=== PATIENT | female | born 1935 | race Caucasian/White ===

== ENCOUNTER 2019-05-02 15:36 | Inpatient (IN) | payer MEDICARE, OTHER ==
[~2019-05-02] VITALS: Ht 152.4 cm; Wt 44.7 kg
[2019-05-02] MEDS ORDERED: BENAZEPRIL HCL10 MG PO (15:48)
[2019-05-02] MEDS ORDERED: AMLODIPINE BESYL5 MG PO (15:48)
[2019-05-02] MEDS ORDERED: METOPROLOL SUCC50 MG PO (15:49)
[2019-05-02] MEDS ORDERED: HYDROCHLOROTHIA25 MG PO (15:49)
[2019-05-02] MEDS ORDERED: CONTOUR NEXT1 EACH MISC (15:50)
[2019-05-02] MEDS ORDERED: METFORMIN HCL500 M1 PO (15:50)
[2019-05-02] MEDS ORDERED: OMEPRAZOLE40 MG PO (15:50)
[2019-05-02] MEDS ORDERED: SIMVASTATIN40 MG PO (15:50)
--- NOTE | 2019-05-02 23:19 | EKG ---
[facility] [address] [facility] [place] [address] Signed Sinus rhythm with occasional premature ventricular complexes ST \T\ T wave abnormality, consider inferolateral ischemia Abnormal ECG No previous ECGs available Confirmed by DORA HERRON MD ([id number]) on 05/02/2019 11:19:46 PM Electronically Signed By: DORA HERRON MD 05/02/19 2319 PATIENT NAME: ANN-MARIEDINA Brown Electrocardiogram DATE OF : 35 PHYSICIAN: DORA HERRON MD REPORT #: [id number] REPORT IS CONFIDENTIAL AND NOT TO BE RELEASED WITHOUT AUTHORIZATION
--- NOTE | 2019-05-03 08:13 | CONS ---
[facility] [address] [place], [place] [address] Signed DATE OF CONSULTATION: HISTORY OF PRESENT ILLNESS: Ms. Jacobsen is an 83-year-old white female, who lives at home independently. She was doing well until earlier today. She was out picking up her dog droppings in her yard when she slipped and was unable to ambulate. She was brought to the emergency room where evaluation revealed a shortened and externally rotated right lower extremity. X-rays were taken, which showed an intertrochanteric hip fracture on the right. PAST MEDICAL HISTORY: Significant only for some mild hypertension and with mild type 2 diabetes, treated with an oral hypoglycemic agent. She denies any medical allergies. At the present time, she denies any injuries other than that to her right hip. REVIEW OF SYSTEMS: Unremarkable. She denies head injury or loss of consciousness. PHYSICAL EXAMINATION: GENERAL: On examination, she is a pleasant alert white female, in moderate discomfort. HEAD, EARS, EYES, NOSE, AND THROAT: Unremarkable. NECK: Supple. CHEST: Clear. CARDIAC: Reveals a regular rhythm. ABDOMEN: Soft and nontender with active bowel sounds. EXTREMITIES: The right leg is shortened and externally rotated. She is able to wiggle her toes on both of her feet and has good sensation in both lower extremities. DIAGNOSTIC DATA: X-rays that were ordered and reviewed which show a significantly shortened and externally rotated intertrochanteric fracture on the right with a large posteromedial fragment. ASSESSMENT AND PLAN: Discussed with her family and her that this is a serious injury. I explained the 25% mortality rate over the next six weeks along with the treatment options. We are also outlined our recommendation for intramedullary nail fixation of the fracture. I have told her I am not sure I can tell whether or not this fracture will be stable or not until we had the opportunity to get some traction films, which I think would be better done with some anesthesia. After discussing all the pros and cons, she and her family were comfortable proceeding with intramedullary nail fixation of her right hip fracture. Electronically Signed By: YASH VASQUEZ MD 05/03/19812 PATIENT NAME: DINA JACOBSEN CONSULTATION DATE OF : 35 REPORT #: [id number] PHYSICIAN: YASH VASQUEZ MD PCP: SONG VILLATORO MD REPORT IS CONFIDENTIAL AND NOT TO BE RELEASED WITHOUT AUTHORIZATION [facility] [address] [place] [address] [place] [address] Signed Yash Vasquez MD WFB/MODL /[id number] Copies: ~ Electronically Signed By: YASH VASQUEZ MD 05/03/19812 PATIENT NAME: DINA JACOBSEN CONSULTATION DATE OF : 35 REPORT #: [id number] PHYSICIAN: YASH VASQUEZ MD PCP: SONG VILLATORO MD REPORT IS CONFIDENTIAL AND NOT TO BE RELEASED WITHOUT AUTHORIZATION
--- NOTE | 2019-05-04 11:40 | OR ---
[facility] [address] [place], [place] [address] Signed DATE OF OPERATION: 05/02/2019 SURGEON: Yash Vasquez MD PREOPERATIVE DIAGNOSIS: Intertrochanteric fracture, right hip. POSTOPERATIVE DIAGNOSIS: Intertrochanteric fracture, right hip. PROCEDURE: Intramedullary nail fixation, right intertrochanteric hip fracture. ANESTHESIA: Spinal. SPECIMENS: There were none. COMPLICATIONS: There were none. TOURNIQUET: Not used. BLOOD LOSS: Minimal. WHAT WAS DONE: The patient was taken to the operating room, placed on the operating table in supine position. After anesthesia was induced and the airway secured, the patient was placed on the fracture table. The fracture was reduced with longitudinal traction and moderate medial rotation. This gave us excellent alignment and position on AP and lateral fluoroscopy. The patient was prepped and draped in a routine sterile fashion. A small incision was made near the tip of the greater trochanter and through with a curved awl was introduced into the tip of the greater trochanter. After we were happy with the position on the fluoroscopy, we used the awl to create a small defect in the tip of the trochanter and then introduced the guidewire and navigated it down the femoral canal. We then passed a 17 mm proximal reamer and reamed down to the lesser toe and we passed a 12 mm reamer, which passed easily. We then impacted a short 11 mm TFN nail. It was Electronically Signed By: YASH VASQUEZ MD 05/04/19 1140 PATIENT NAME: DINA JACOBSEN OPERATIVE REPORT DATE OF : 35 REPORT #: [id number] PHYSICIAN: YASH VASQUEZ MD PCP: SONG VILLATORO MD REPORT IS CONFIDENTIAL AND NOT TO BE RELEASED WITHOUT AUTHORIZATION [address] [address] Signed secured proximally with a #95 spiral blade and distally with a single 34 mm 5.0 screw. This gave a stable construct with good alignment and good position. The wounds were gently irrigated, closed in standard fashion. Sterile dressings applied. The patient was awakened and taken to the recovery room where she arrived in stable condition. Counts were correct and antibiotic protocols were followed. Yash Vasquez MD WFB/MODL /[id number] Copies: ~ Electronically Signed By: YASH VASQUEZ MD 05/04/19 1140 PATIENT NAME: DINA JACOBSEN OPERATIVE REPORT DATE OF : 35 REPORT #: [id number] PHYSICIAN: YASH VASQUEZ MD PCP: SONG VILLATORO MD REPORT IS CONFIDENTIAL AND NOT TO BE RELEASED WITHOUT AUTHORIZATION
--- NOTE | 2019-05-07 14:16 | DS ---
[facility] [address] [place], [place] [address] Signed ADMISSION DATE: 05/03/2019 DISCHARGE DATE: 05/06/2019 HOSPITAL COURSE: Erinn is an 83-year-old white female, who fell on the date of admission, which was May 02, 2019. She was brought to the emergency room where examination and x-rays revealed intertrochanteric fracture of the right hip. She was admitted to the Orthopedic Service. Once admitted, routine labs were accomplished. She was evaluated by the hospitalist, who thought she was medically optimized for repair of her hip. On the 03 of May, she was taken to the operating room, where she underwent a closed TFN nailing of the right hip. Postoperatively, she has done extraordinarily well. She is rapidly meeting her physical therapy goals and is ambulating with her walker and has even done stairs both up and down. She is currently comfortable, primarily taking a Tylenol, although she did take a half of an oxycodone last night because she was just so sore from doing the PT. Plan is to discharge her home with a tiny amount of oxycodone, aspirin for DVT prophylaxis, and tramadol for routine pain. She will continue a general diet and activity as tolerated. I will ask to have her followup in 6 weeks for new x-rays of the right hip. Her son is planning on taking her home. It appeared that her son's recently after a long tyson with lung cancer and his house is essentially arranged to provide care. We will plan on discharging when she is independent with her therapy goals. MD QUITA Sheppard/TAMICA /[id number] Copies: Electronically Signed By: SYBIL LR MD 05/07/19 1416 PATIENT NAME: ERINN JACOBSEN DISCHARGE SUMMARY DATE OF : 35 REPORT #: [id number] PHYSICIAN: SYBIL LR MD PCP: SONG VILLATORO MD REPORT IS CONFIDENTIAL AND NOT TO BE RELEASED WITHOUT AUTHORIZATION [address] [place], [place] [address] Signed ~ Electronically Signed By: SYBIL LR MD 05/07/19 1416 PATIENT NAME: ERINN JACOBSEN DISCHARGE SUMMARY DATE OF : 35 REPORT #: [id number] PHYSICIAN: SYBIL LR MD PCP: SONG VILLATORO MD REPORT IS CONFIDENTIAL AND NOT TO BE RELEASED WITHOUT AUTHORIZATION
== END 2019-05-06 12:17 | disposition swing bed (61) | DRG 482 ==
LOC: ED 15:36 → MS 15:38 → ED 15:38 → MS 05-03 08:17
PROVIDERS: ADMIT Orthopaedic Surgery
PROC: 0QH636Z Insertion of Intramedullary Internal Fixation Device into Right Upper Femur, Percutaneous Approach (ICD-10-PCS; principal; 2019-05-03 08:00)
DX: S72.141A Displaced intertrochanteric fracture of right femur, initial encounter for closed fracture (principal); E78.5 Hyperlipidemia, unspecified; I10 Essential (primary) hypertension; E11.9 Type 2 diabetes mellitus without complications; K21.9 Gastro-esophageal reflux disease without esophagitis; W01.0XXA Fall on same level from slipping, tripping and stumbling without subsequent striking against object, initial encounter; Y92.007 Garden or yard of unspecified non-institutional (private) residence as the place of occurrence of the external cause; Z79.84 Long term (current) use of oral hypoglycemic drugs; Z79.899 Other long term (current) drug therapy
CPT/HCPCS: 01210; 36415; 71045; 72170; 73501; 73502; 73560; 80048; 80053; 83036; 85025; 85610; 93005; 93010; 96374; 96375; 97110; 97116; 97162; 97165; 99285-25; C1713; J0690; J2250; J2270; J2274; J2370; J2405; J2550; J2704; J3010; J7030; J7121

== ENCOUNTER 2019-05-06 12:18 | Inpatient (IN) | payer MEDICARE, OTHER ==
[~2019-05-06] VITALS: Ht 152.4 cm; Wt 44.7 kg
[~2019-05-06 12:18] MED LIST: AMLODIPINE BESYL5 MG PO; BENAZEPRIL HCL10 MG PO; CONTOUR NEXT1 EACH MISC; HYDROCHLOROTHIA25 MG PO; METFORMIN HCL500 M1 PO; METOPROLOL SUCC50 MG PO; OMEPRAZOLE40 MG PO; SIMVASTATIN40 MG PO
--- NOTE | 2019-05-06 12:20 | NUR ---
PT ADMITTED TO TRANSITIONAL CARE STATUS. PT AND SON AWARE OF WHAT THIS STATUS ENTAILS. PT SITTING UP IN RECLINER TALKING ON THE PHONE. CALL LIGHT WITHIN REACH.
--- NOTE | 2019-05-06 14:06 | NUR ---
CALL LIGHT ANSWERED. PATIENT SITTING UP IN CHAIR. PATIENT GOES TO USE THE BATHROOM. PATIENT USES WALKER. ONE PERSON ASSISTING. PATIENT BACKS TO CHAIR. VITAL SIGNS AND I&O DONE. CALL LIGHT WITHIN REACH. NO OTHER NEEDS AT THIS TIME
--- NOTE | 2019-05-06 14:42 | NUR ---
PT ASLEEP IN CHAIR. DAVID GUAN REQUESTED I LET PT SLEEP. WILL FOLLOW NEEDED
--- NOTE | 2019-05-06 15:11 | NUR ---
PT SITTING UP IN RECLINER DROWSY BUT ORIENTED TO ALL. DENIES PAIN OR OTHER NEEDS OR CONCERNS AT THIS TIME. CALL LIGHT WITHIN REACH.
--- NOTE | 2019-05-06 17:46 | NUR ---
Pt. transitioned to transitional care today for further PT/OT. Pt would like to dc to her son's home when she has worked on conditioning and with OT to care for self dressinging and food prep. Pt will stay with son, but will be alone when he is working.
--- NOTE | 2019-05-06 18:10 | NUR ---
PT SITTING UP IN RECLINER WATCHING TV. DENIES NEEDS OR CONCERNS AT THIS TIME. CALL LIGHT WITHIN REACH.
--- NOTE | 2019-05-06 18:11 | NUR ---
PATIENT SITTING UP IN CHAIR. RN IN ROOM. I&O DONE. CALL LIGHT WITHIN REACH.NO OTHER NEEDS AT THIS TIME
--- NOTE | 2019-05-06 20:13 | NUR ---
REPORT RECEIVED FROM DAY SHIFT RN. PT SITTING IN RECLINER WATCHING TV, ALERT AND ORIENTED. REPOSITIONED WITH PILLOWS. DENIES NEEDS AT THIS TIME. CALL LIGHT IN REACH.
--- NOTE | 2019-05-06 21:20 | NUR ---
PT TRANSFERRED FROM RECLINER TO BED WITH 1PA. INCREASED PAIN IN THE RIGHT HIP AND KNEE. PRN GIVEN. FRESH ICE PACK TO INCISION AND RIGHT KNEE. DIFFUSE BRUISING NOTED ON RIGHT LEG. PT DESCRIBES PAIN "SHARP" AND STATES THIS IS THE MOST PAINFUL SHE HAS BEEN SINCE SURGERY. CMS INTACT WITH GOOD CAPILLARY REFILL. HP AND SCD'S APPLIED. CALL LIGHT IN REACH.
--- NOTE | 2019-05-06 22:10 | NUR ---
PT REQUESTING ADDITIONAL PAIN MEDICINE FOR PAIN IN RIGHT LEG. MEDICATED WITH PRN ORDERED.
--- NOTE | 2019-05-07 00:20 | NUR ---
PT UP TO BR WITH 1PA AND FWW. GAIT SLOW BUT STEADY. BACK TO BED, LAKE WELL. DRESSING ON RIGHT HIP NOTED TO BE FALLING OFF AND LEAKING SEROSANGUINEOUS DRAINAGE. REMOVED OLD DRESSING, CLEANED SKIN WITH NORMAL SALINE, AND APPLIED ALLEVYN TO DISTAL INCISION. PROXIMAL INCISION REINFORCED WITH TAPE. BOTH INCISIONS WELL APPROXIMATED WITH BRADLEY. PRN GIVEN FOR 5/10 HIP PAIN. NO FURTHER NEEDS AT THIS TIME, CALL LIGHT IN REACH.
--- NOTE | 2019-05-07 02:39 | NUR ---
PT RESTING IN BED WITH EYES CLOSED, NO APPARENT DISTRESS.
--- NOTE | 2019-05-07 03:02 | NUR ---
Patient has abulate 2 Xs to the restroom. Patient is a 1 PA. Patient uses 4 WW to and from bed to bathroom patient was given fresh water, call light in reach.
--- NOTE | 2019-05-07 04:27 | NUR ---
PT ALERT AND ORIENTED, USES CALL LIGHT APPROPRIATELY. PT VERY PAINFUL AT BEGINNING OF SHIFT, HAS BEEN CONTROLLED TO THIS POINT WITH PO TYLENOL AND 2.5 OXY. RIGHT LEG WITH DIFFUSE, SCATTERED BRUISING. SCD'S/HP. 1PA WITH FWW. IV IN LEFT FOREARM DC'D.
--- NOTE | 2019-05-07 04:47 | NUR ---
Patient woke up confused. got patient up in to her chair, fresh water, call light in reach,
--- NOTE | 2019-05-07 05:13 | NUR ---
PT WOKE CONFUSED AND DISORIENTED. PT STATES THAT IS NOT ABNORMAL FOR HER AFTER HAVING "DEEP SLEEP" AND THAT IT SOMETIMES TAKES HER A FEW MINUTES TO WAKE UP ENOUGH TO REALIZE WHERE SHE IS. PT SITTING IN RECLINER AT THIS TIME. CHAIR ALARM ON. PT DEMONSTRATES HOW TO CALL FOR ASSISTANCE. COFFEE GIVEN. MEDICATED WITH PRN FOR 4/10 RIGHT LEG/HIP PAIN. CALL LIGHT IN HAND.
--- NOTE | 2019-05-07 05:46 | NUR ---
PT CALLED FOR ASSISTANCE TO THE RESTROOM. YOLI W FWW. SHE IS BACK IN THE CHAIR AT THIS TIME WITH CHAIR ALARM ON. CALL LIGHT IS CLOSE.
--- NOTE | 2019-05-07 07:25 | NUR ---
PT RESTING IN HER CHAIR WITH THE ALARM ON. SHE DENIES ANY PAIN OR NEW PROBLEMS. CALL LR WITHIN REACH.
--- NOTE | 2019-05-07 07:56 | NUR ---
PT SITTING IN HER CHAIR EATING BREAKFAST AT THIS TIME. SHE DENIES ANY PAIN OR CHANGES IN HER CONDITION. INCISION SITE DRESSING INTACT TO THE RIGHT HIP WITH A SMALL AMOUNT OF OLD DRAINAGE NOTED AND NO S/S OF INFECTION. SOME BRUISING NOTED. PT ALERT AND ORIENTED TO PERSON, PLACE AND TIME. CALL LR WITHIN REACH AND CHAIR ALARM REMAINS ON AT THIS TIME.
--- NOTE | 2019-05-07 10:38 | NUR ---
BROUGHT DINA HER PAPERS THAT SHE WILL NEED TO BRING WITH HER TO DR FREEDMAN OFFICE FOR HER FOLLOW UP APPOINTMENT. HER SON WANTED US TO MAKE SURE WE WERE AWARE THAT WHEN DINA DISCHARGES SHE WILL BE GOING TO HIS HOUSE. HIS ADDRESS IS [address] [facility], [id number]
--- NOTE | 2019-05-07 10:49 | NUR ---
Pt continues to deny any pain or other problems at this time. Call caal within reach.
--- NOTE | 2019-05-07 11:09 | NUR ---
PATIENT SITTING UP IN CHAIR WATCHING TV. FRESH WATER GIVEN. CALL LIGHT IN REACH. NO FURTHER NEEDS AT THIS TIME.
--- NOTE | 2019-05-07 11:30 | NUR ---
Erinn sitting up in chair, smiling. Stating she is feeling well. Less sore today. Denies needs.
--- NOTE | 2019-05-07 13:33 | NUR ---
PATIENT IN CHAIR WATCHING TV. PATIENT REFUSED SHOWER. CALL LIGHT IN REACH. NO FURTHER NEEDS AT THIS TIME.
--- NOTE | 2019-05-07 13:57 | NUR ---
Pt exercising her leg and states her right leg pain is now a 3/10. Pt requested Tylenol and it was given as ordered. Pt denies any other problmes at this time.
--- NOTE | 2019-05-07 14:11 | NUR ---
PT WORKING WITH PHYSICAL THERAPY AT THIS TIME.
--- NOTE | 2019-05-07 14:17 | NUR ---
PT SITTING IN CHAIR, VISITING WITH SON ZONIA. HAD PLEASANT VISIT, ZONIA THANKED ME FOR RECOMMENDING THE CAFETERIA TO HIM. PT IN [place] AND WILL DC MAYBE SUNDAY. SON WORKING HARD TO HAVE HIS HOME READY FOR PT FOLLOWING DC. HAD PRAYER WITH BOTH, GAVE PT A P.SHAWL. WILL FOLLOW NEEDED
--- NOTE | 2019-05-07 14:43 | NUR ---
Pt resting in her bed following working with physical therapy. She states she has some slight right leg pain but states it is under control and that it is decreasing. She did not rate her pain but states it is acceptable. Bed alarm is on as well as her scd's. Pt oriented at this time and call caal within reach.
--- NOTE | 2019-05-07 14:50 | NUR ---
Pt just had a shower and is now resting in her chair with no new complaints. She tolerated the showering well. Call caal within reach.
--- NOTE | 2019-05-07 16:00 | NUR ---
Pt ambulated to the BR with a 1pa and the use of the walker. Pt tolerated the movement well and denies any pain at this time. Pt refused a walk or to be up to the chair and was helped back to bed. Call light within reach and bed alarm is on.
--- NOTE | 2019-05-07 17:00 | NUR ---
Pt sitting up in her chair having dinner at this time. Sat on 3l is 93%. Pt states her breathing feels good.
--- NOTE | 2019-05-07 19:20 | NUR ---
SHIFT REPORT RECEIVED FROM DAYSHIFT DAVID BARRERA AT BEDSIDE. PT RESTING IN BED, AWAKE. NO DISTRESS NOTED, DRESSINGS TO RIGHT HIP INTACT. DENIES NEEDS, CALL LIGHT IN REACH.
--- NOTE | 2019-05-07 19:23 | NUR ---
pt requested two warm blankets, but nothing further at this time.
--- NOTE | 2019-05-07 21:09 | NUR ---
ASSESSMENT COMPLETE, SCHEDULED MEDS GIVEN (SEE EMAR). VSS, PT ON RA. PT A/O. PT REPORTS PAIN IN RIGHT LEG, PRN TYLENOL AND 2.5 MG PRN OXYCODONE ADMINISTERED PER PT REQUEST. DRESSINGS TO RIGHT HIP INTACT, NO NEW SHADOWING NOTED. WILL MONITOR FOR CHANGES. PT UP SBA WITH FWW TO VOID AND RETUNED TO BED. REPOSITIONED AND BOOSTED WITH HELP FROM July. BILATERAL SCD'S IN PLACE, CALL LIGHT IN REACH. NO ADITIONAL NEEDS VERABLIZED.
--- NOTE | 2019-05-08 00:38 | NUR ---
NOTIFIED BY DAVID STANFORD THAT PT IS YELLING OUT FOR HELP, THIS RN IN ROOM TO ASSESS. PT IN BED, VERBALIZES NEED TO VOID. CALL LIGHT IN REACH, PT EDUCATED ON USE OF CALL. PT STATES, "SOMETIMES WHEN I WAKE UP, I JUST FORGET. IT'S SO NICE THOUGH TO HAVE FAMILY TO TAKE CARE OF YOU". ORIENTATION ASSESSED, PT INITIALLY UNAWARE OF PLACE, REORIENTED TO PLACE AND EVENTS. REORIENTED EASILY, SBA WITH FWW TO VOID. PT BACK IN BED, CALL LIGHT IN REACH. BED ALARM ON FOR SAFETY. SHADOWING TO ALLEVYN DRESSING OUTLINED, WILL MONITOR FOR CHANGES.
--- NOTE | 2019-05-08 02:19 | NUR ---
PT FIDGETING IN BED. PT REPORTING NEED TO MAKE A PHONE CALL. PT DISORIENTED TO PLACE AND TIME. PT BELIEVES SHE IS IN "SOMEONE'S BEDROOM" AND REFERRING TO NURSING STAFF ANGELS. PT REORIENTED TO PLACE, DATE/TIME, AND EVENTS. PT IN BED, BLANKETS IN PLACE. SCD'S ON, CALL LIGHT IN REACH WITH BED ALARM ON.
--- NOTE | 2019-05-08 03:40 | NUR ---
pt used call light to ask for assistane to use restroom. pt did well, resulting in 325ccs. Nothing further needed at this time.
--- NOTE | 2019-05-08 05:08 | NUR ---
ADMINISTERED TYLENOL FOR 5/10 PAIN, PT DENIES FURTHER NEEDS AT THIS TIME. CALL LIGHT IS CLOSE.
--- NOTE | 2019-05-08 09:00 | NUR ---
IDT completed with Erinn for TC. Goal reviewed and she met care team.
--- NOTE | 2019-05-08 09:50 | NUR ---
AWAKE EARLY, IN GOOD SPIRITS, REQUESTED CUP OF COFFE, BREAKFAST ORDERED. GOOD CMS TO R LEG.
--- NOTE | 2019-05-08 13:43 | NUR ---
PT IS SITTING UP IN RECLINER, MEDICATED FOR ACHING IN R HIP, REPOSITIONED WITH ICE FOR COMFORT, DOES NOT WANT TO LAY DOWN, WATCHING TV PROGRAM. CALL LIGHT IN EASY REACH.
--- NOTE | 2019-05-08 14:30 | NUR ---
BACK TO BED FOR NAP, C/O FLATUS, DENIES NAUSEA, HEEL PROTECTORS ON FOR COMFORT. CALL LIGHT IN EASY REACH.
--- NOTE | 2019-05-08 19:10 | NUR ---
SHIFT REPORT RECEIVED FROM DAYSHIFT RN MEL AT BEDSIDE. PT AWAKE AND RESTING IN BED, NO DISTRESS NOTED. ALLEVYN DRESSING TO RIGHT HIP FULLY SATURATED, WILL MONITOR FOR CHANGES. REPORTS NEED TO VOID, LANEY ODELL IN ROOM TO ASSIST PT.
--- NOTE | 2019-05-08 22:20 | NUR ---
ASSESSMENT COMPLETE, SCHEDULED MEDS GIVEN (SEE EMAR). PRN TYLENOL ALSO GIVEN FOR 3/10 RIGHT HIP PAIN. PT A/O AT THIS TIME, WILL MONITOR. BED ALARM ON FOR SAFETY. DRESSINGS TO RIGHT HIP INTACT, DRY CLEAR/YELLOW SHADOWING NOTED TO UPPER DRESSING. ALLEVYN TO RIGHT HIP FULL SATURATED WITH SEROSANGUINEOUS SHADOWING. SCANT SEEPING NOTED TO EDGE. KRYS PAD UNDER RIGHT HIP, WILL MONITOR. CMS INTACT, BILATERAL PEDAL PULSES NOTED. NO FURTHER NEEDS, FRESH WATER AT BEDSIDE. CALL LIGHT IN REACH.
--- NOTE | 2019-05-09 00:16 | NUR ---
DISCUSSED SHADOWING WITH HOUSE SUERVISOR MARGARITO. NIMO RN IN ROOM TO ASSESS HIP. SCANT SEEPING NOTED AND APPROX. EMMETT SIZED SHADOWING NOTED ON CHUCKS. ADVISED BY RESEARCH BIOSTATISTICIAN TO REINFORCE SITE WITH ABD PAD AND CONTINUE TO MONITOR. SITE REINFORCED, PT DENIES FURTHER NEEDS. CALL LIGHT IN REACH.
--- NOTE | 2019-05-09 01:12 | NUR ---
PT RESTING IN BED, EYES CLOSED. PT APPEARS COMFORTABLE, NO DISTRESS NOTED. CALL LIGHT IN REACH. BED ALARM ON FOR SAFETY.
--- NOTE | 2019-05-09 03:58 | NUR ---
INFORMED BY LANEY JULY, ALLEVYN DRESSING TO RIGHT HIP IS SEEPING FROM UNDER EDGE OF DRESSING. ABD PAD REINFORCED ON SIDES, SMALL AMOUNT SEEPING COMING FROM UNDERNEATH.SANGUINEOUS IN COLOR. EPIC STORK SPECIALISTSDAVID STANFORD IN ROOM TO ASSESS. SITE REINFORCED BY SECOND SMALLER ALLEVYN TO SECURE EDGE OF FIRST ALLEVYN DRESSING. WILL MONITOR.
--- NOTE | 2019-05-09 08:01 | NUR ---
AWAKE EARLY, UP TO RECLINER FOR BREAKFAST, DENIES NEED FOR PAIN MEDICATION, STATES SHE SLEPT WELL, CALL LIGHT IN REACH.
--- NOTE | 2019-05-09 09:00 | NUR ---
DR GUSMAN SAID OK TO REMOVE SATURATED DRSG FROM R HIP AND APPLY DRY GAUZE DRSG, INCISION IS WELL APPROX WITH BRADLEY. PINPOINT AREA AT MID INCISION WITH DROPS OF RED SERROUS FLUID WITH MOVEMENT OF HIP, NOTABLE BRUISING AT HIP AND INTO LOWER LEG AND ANKLE, WEARING HEEL PROTECTORS, NO OPEN AREAS, DISCUSSED ASPIRIN 325MG ORDERED QD. DR GUSMAN SAID TO CONT. ASPIRIN ORDERED. PT SITTING UP IN RECLINER VISITING WITH HER SON NOW. DENIES ANY NEEDS.
--- NOTE | 2019-05-09 12:23 | NUR ---
PT SITTING IN CHAIR EATING LUNCH. SHE MENTIONED THAT SON ZONIA LEFT EARLY BECAUSE OF WEATHER. PT STATED SHE FEELS MORE ENERGIZED TODAY, AND HAS BEEN WITH P.T. SADIE ANDRADE, WILL FOLLOW NEEDED
--- NOTE | 2019-05-09 14:49 | NUR ---
LAYED DOWN FOR A NAP AFTER WORKING WITH THERAPY. REMAINS IN GOOD SPIRITS NO NEEDS OR CONCERNS. RESTING WITH HEEL PROTECTORS ON. CALL LIGHT IN EASYR EACH.
--- NOTE | 2019-05-09 16:21 | NUR ---
PT RESTING IN HER BED AND DENIES ANY PAIN. SHE REFUSED A WALK WHEN OFFERED.
--- NOTE | 2019-05-09 17:36 | NUR ---
Pt eating her dinner and she denies any pain or new problems at this time.
--- NOTE | 2019-05-09 18:16 | NUR ---
PT ASSISTED TO THE BR AND TOLERATED THE MOVE WELL AND STATES HER PAIN REMAINS WELL CONTROLED. PT VOIDED THEN WALKED TO THE HALLWAY AND FROM THERE BACK TO BED, THIS IS FAR THE PT AGREED TO WALK. PT NOW BACK TO BED, SCD'S ON WELL HEEL PROTECTORS. CALL LR WITHIN REACH.
--- NOTE | 2019-05-09 19:29 | NUR ---
SHIFT REPORT RECIEVED FROM HOLLY HERNANDEZ. PT DENIES PAIN. PT IN BED, WATCHING TV. NO OTHER NEEDS, CALL LIGHT IN REACH.
--- NOTE | 2019-05-09 21:53 | NUR ---
SCHEDULED MEDS PROVIDED. PAIN 8/10 IN R HIP, PRN PAIN MED PROVIDED. ICE WATER PROVIDED. ASSESSMENT, I&O AND VS COMPLETED. PT UP TO BR, FWW, BACK TO BED. BANDAGING INTACT, WNL. ROOM TEMP TURNED UP PER PT REQUEST. NO OTHER NEEDS AT THIS TIME, CALL LIGHT IN REACH.
--- NOTE | 2019-05-10 00:02 | NUR ---
PT RESTING IN BED, EYES CLOSED. RR 14, EVEN, UNLABORED. CALL LIGHT IN REACH.
--- NOTE | 2019-05-10 01:55 | NUR ---
PT CALLS TO USE BR. UP TO BR AND BACK TO BED, FWW SBA. ICE WATER PROVIDED. SCDs ON. NO OTHER NEEDS. CALL LIGHT IN REACH.
--- NOTE | 2019-05-10 03:24 | NUR ---
PT RESTING IN BED, EYES CLOSED. RR 14, EVEN, UNLABORED. CALL LIGHT IN REACH.
--- NOTE | 2019-05-10 04:44 | NUR ---
PT HAS SLEPT WELL THIS SHIFT. 1PA, FWW TO BR. VSS. UO SUFFICIENT. A&O X4 BUT CAN WAKE UP CONFUSED ABOUT WHERE SHE IS FOR A FEW MINUTES. GCS 15. CMS INTACT X4 EXTREMITIES. INCISIONS WNL, NEW NEW DRAINAGE FROM SITES THIS SHIFT. PAIN MANAGED WITH PRN PAIN MEDS.
--- NOTE | 2019-05-10 07:42 | NUR ---
0708: PT RESTING IN HER BED, SHE IS ALERT AND ORIENTED AND STATES SHE HER PAIN IS "GOOD". CALL LR WITHIN REACH.
--- NOTE | 2019-05-10 08:34 | NUR ---
DRAINAGE NOTED TO RIGHT HIP DRESSINGS WHICH REMAIN INTACT AND WITH NO S/S OF INFECTION NOTED. PT DENIES ANY PAIN OR NEW PROBLEMS AT THIS TIME. PT NOW EATING HER BREAKFAST. PT ALERT AND ORIENTED AT THIS TIME, BED ALARM REMAINS ON AND CALL LR WITHIN REACH.
--- NOTE | 2019-05-10 10:36 | NUR ---
PATIENT SITTING IN CHAIR, FAMILY IN ROOM. LINENS CHANGED. PATIENT REFUSED SHOWER. CALL LIGHT IN REACH. NO FURTHER NEEDS AT THIS TIME. WARM WASHCLOTH GIVEN.
--- NOTE | 2019-05-10 13:40 | NUR ---
PATIENT IN BED RESTING. WARM BLANKET GIVEN. CALL LIGHT IN REACH. NO FURTHER NEEDS AT THIS TIME.
--- NOTE | 2019-05-10 13:52 | NUR ---
Pt sleeping at this time, call caal within reach.
--- NOTE | 2019-05-10 14:40 | NUR ---
Pt resting in bed and states she has some right hip pain which she states is acceptable. SCD's on and running, call caal within reach.
--- NOTE | 2019-05-10 16:55 | NUR ---
PT AMBULATING IN THE HALLS WITH THE RESEARCH AND EVALUATION MANAGER AND HER WALKER AT THIS TIME. SHE STATES HER PAIN IS A 2 AND WELL CONTROLED.
--- NOTE | 2019-05-10 19:35 | NUR ---
YESTERDAY AFTER WORKING WITH PHYSICAL THERAPY SHE WAS TO TIRED TO TAKE A SHOWER OR A BED BATH. I DID PUT A NEW GOWN ON HER.
--- NOTE | 2019-05-10 20:01 | NUR ---
REPORT RECEIVED FROM DAY SHIFT RN. PT LYING IN BED, ALERT AND ORIENTED. DENIES NEEDS AT THIS TIME. CALL LIGHT IN REACH.
--- NOTE | 2019-05-10 21:20 | NUR ---
CHARGE NURSE NOTED:. PLASANT, AWAKE, ADDY C/O PAIN, FLUIDS AND CALL LIGHT AT BEDSIDE, CONTINUES ON TRANSITINAL CARE STATUS
--- NOTE | 2019-05-10 21:24 | NUR ---
ASSISTED PT TO BR X1 ASSIST WITH 4 WHEELED WALKER. PT LAKE WELL. PERICARE DONE. BACK TO BED. SIDE RAILS UP X2. CALL LIGHT IN REACH. DENIES FURTHER NEEDS AT THIS TIME
--- NOTE | 2019-05-10 22:00 | NUR ---
EVENING ASSESSMENT COMPLETE. PT DROWSY BUT EASY TO AROUSE. RIGHT HIP DRESSING X 2 WITH SEROUS DRAINAGE NOTED. SCD'S/HP IN PLACE. PT WITHTOUT QUESTIONS OR CONCERNS AT THIS TIME. BED ALARM ON. CALL LIGHT IN REACH.
--- NOTE | 2019-05-11 00:20 | NUR ---
CALL LIGHT ANSWERED. MEDICATED WITH PRN FOR 8/10 RIGHT HIP PAIN. REPOSITIONED PT IN BED. NO FURTHER NEEDS AT THIS TIME.
--- NOTE | 2019-05-11 03:11 | NUR ---
PT CALLING OUT FOR HELP. UP TO BR WITH SBA AND FWW WALKER. DEVIN CARE DONE. ALLEVYN TO COCCYX INTACT, BARRIER CREAM APPLIED TO BUTTOCKS. BACK TO BED, LAKE WELL. PRN FOR PAIN GIVEN. PT STATES SHE'S NOT CONFUSED, JUST FORGETS TO USE THE NURSE CALL LIGHT. CALL LIGHT IN HAND, BED ALARM ON.
--- NOTE | 2019-05-11 06:17 | NUR ---
PT RESTING IN BED WITH EYES CLOSED, NAD. CALL LIGHT IN REACH, BED ALARM ON.
--- NOTE | 2019-05-11 06:36 | NUR ---
PATIENT IS RESTING
--- NOTE | 2019-05-11 07:32 | NUR ---
0712: Report recieved from Julia HERNANDEZ. Pt resting in her bed with no compliats of pain. Call caal within reach.
--- NOTE | 2019-05-11 08:39 | NUR ---
PT UP SITTING IN HER CHAIR WATCHING TV AND EATING BREAKFAST. SHE DENIES ANY PAIN AT THIS TIME. SHE IS ALERT AND ORIENTED AND HER CALL LR IS WITHIN REACH. RIGHT HIP DRESSING NOTED TO BE INTACT WITH OLD DRAINAGE ON THEM AND THE SURROUNDING TISSUE APPEARS BRUISED AND WITHOUT ANY S/S OF INFECTION.
--- NOTE | 2019-05-11 10:45 | NUR ---
Pt denies any problems at this time.
--- NOTE | 2019-05-11 12:22 | NUR ---
The pt called and requested some tylenol for right hip pain at a 08/16. Pt medicated as reqeusted, see emar. She denies any other problems at this time.
--- NOTE | 2019-05-11 13:02 | NUR ---
Dressings removed as ordered to the right hip, bossman remain in place to both incisions. The sites have old bruising noted but with no s/s of infection. The pt tolerated the dressing removal well. Pt ambulated in her room with her fww and a SBA of which she states "feels good". Pt now back to her chair with the alarm on and her call caal in reach.
--- NOTE | 2019-05-11 14:49 | NUR ---
Pt sleeping, call caal within reach, scd's on and running.
--- NOTE | 2019-05-11 16:13 | NUR ---
ALLEVYN DRESSING TO THE PT COCCYX WAS CHANGED. THE COCCYX AREA AND THE AREA TO THE BUTTOCK ON THE RIGHT AND LEFT IS RED IN COLOR AND IS BLANCHABLE. THERE IS AN AREA ON THE RIGHT BUTTOCK THAT MEASURES 1CM X 0.5CM THAT IS OPEN THROUGH THE FIRST LAYER OF SKIN OF WHICH TO BE AN ABRASION. THERE IS NO S/S OF INFECTION AND THE SITE WAS SPRAYED WITH BARRIER SPRAY AND COVERED WITH ANOTHER ALLEVYN. THE PT DEINES ANY PAIN IN THE AREA. SHE WAS REPOSITIONED AND INSTRUCTED IN THE IMPORTANCE OF MOVING AND REPOSITIONING FREQUENTLY AND SHE STATES UNDERSTANDING. THE RIGHT HIP INCISION SITES HAVE BEEN OOZING A MODERATE AMOUNT OF YELLOW SEROUS FLUID SINCE THE DRESSINGS WERE REMOVED. THE SITES APPEAR HEALTHY AND WITH BRADLEY REMAINING IN PLACE. THE SITES WERE REDRESSED WITH GAUZE AND TAPE. WILL CONTINUE TO MONITOR.
--- NOTE | 2019-05-11 17:06 | NUR ---
Pt assisted to the BR then to her chair. She states her pain is under good control and she is now watching the super bowl. Call caal within reach and chair alarm is on.
--- NOTE | 2019-05-11 17:23 | NUR ---
Pt called and states her pain is "getting up there after we moved". Pt did not rate her pain, pt medicated, see emar.
--- NOTE | 2019-05-11 18:07 | NUR ---
Pt states her pain is much better rating it at a 3 at this time.
--- NOTE | 2019-05-11 19:47 | NUR ---
REPORT RECEIVED FROM DAY SHIFT RN. PT SITTING IN RECLINER ALERT AND ORIENTED, TALKING ON THE PHONE WITH HER SON. NO NEEDS AT THIS TIME. CALL LIGHT IN REACH.
--- NOTE | 2019-05-11 20:37 | NUR ---
EVENING ASSESSMENT COMPLETE. PM MEDS GIVEN WITHOUT ISSUE. PT STATES PAIN IS CONTROLLED AT THIS TIME. PT WISHES TO REMAIN IN RECLINER FOR A WHILE LONGER. CALL LIGHT IN REACH.
--- NOTE | 2019-05-11 20:42 | NUR ---
LEGAL BILLING ANALYST ROUNDING NOTE. PT RESTING IN BED CHAIR WITH HEAD ON ARM REST. PT STATES THAT SHE IS TRYING TO GET SOME PRESSURE OFF OF HER BUTTOCKS, STATES THAT SHE IS COMFORTABLE. PT DENIES FURTHER NEEDS AT THIS TIME. CALL LIGHT IN REACH. WHITE BOARD UPDATED.
--- NOTE | 2019-05-12 00:52 | NUR ---
PT RESTING IN BED WITH EYES CLOSED, NAD. BED ALARM ON, CALL LIGHT IN REACH.
--- NOTE | 2019-05-12 01:44 | NUR ---
CALL LIGHT ANSWERED. PT UP TO BR WITH FWW AND SBA TO VOID AND HAVE SM BM. DEVIN CARE DONE. BACK TO BED, LAKE WELL. SCD'S/HP IN PLACE. PILLOW UNDER RIGHT HIP TO RELIEVE PRESSURE FROM COCCYX/BUTTOCKS. BED ALARM ON, CALL LIGHT IN REACH.
--- NOTE | 2019-05-12 02:04 | NUR ---
PATIENT HAS BEEN UP 2 TIME TO THE BATHROOM, PATIENT IS A STAND BY ASSIST. CALL LIGHT IN REACH.
--- NOTE | 2019-05-12 06:07 | NUR ---
PT SLEPT WELL. ALERT AND ORIENTED, USES CALL LIGHT APPROPRIATELY. PAIN CONTROLLED WITH PRN TYLENOL. 1PA WITH FWW. ALLEVYN TO COCCYX/BUTTOCKS FOR REDDENED AREA. PT/OT.
--- NOTE | 2019-05-12 07:30 | NUR ---
BEDSIDE REPORT RECEIVED PT ALERT AND ORIENTED, ASSISTED TO REPOSITION IN BED
--- NOTE | 2019-05-12 08:41 | NUR ---
PT UP TO THE CHAIR SBA WITH WALKER SHE IS ABLE TO TOILET AND ADJUST CLOTHING INDEPENDANTLY. TO THE CHAIR FOR BREAKFAST WELL TOLERATED. PT DENIES PAIN WHILE SITTING STILL. SON IS IN TO VISIT. CALL LIGHT IN LAP
--- NOTE | 2019-05-12 09:00 | NUR ---
PATIENT SITTING IN CHAIR TALKING TO SON, PT IN ROOM TO WORK WITH PATIENT. CALL LIGHT IN REACH. NO FURTHER NEEDS AT THIS TIME.
--- NOTE | 2019-05-12 10:46 | NUR ---
LIDOCAINE PATCH APPLIED TO PT RIGHT ANKLE PER HER REQUEST, SHE STATES THAT IS WHERE SHE HURTS THE MOST TODAY AND HAS AN OLD SPRAIN THERE THAT SHE FEELS IS AGGRIVATED
--- NOTE | 2019-05-12 12:32 | NUR ---
PT SITTING IN CHAIR-WRAPPED IN P.SHAWL AND BLANKETS. SHE MENTIONED THAT SHE DID NOT SLEEP WELL LAST NIGHT AND HAD ROUGH DAY WITH P.T. SON HAD JUST LEFT AND PT SAID SHE REALLY WANTED TO TAKE A NAP BEFORE P.T. AGAIN THIS AFTERNOON HAD PRAYER WITH PT, WILL FOLLOW NEEDED
--- NOTE | 2019-05-12 14:21 | NUR ---
Spoke with Erinn in [place] while she is working with PT. She states she is working, tires easily. Glad she decided to stay a few extra days as she states she has to be on her own.
--- NOTE | 2019-05-12 15:53 | NUR ---
PT REMAINS UP IN CHAIR ENTIRE MORNING AND AFTERNOON. AFTER MEAL AND P/T SHE RETURNS TO BED TO REST FOR A TIME. SHE STATES LIDOCAIN PATCH HAS BEEN EFFECTIVE FOR HER ANKLE PAIN.
--- NOTE | 2019-05-12 18:29 | NUR ---
PT RESTING IN BED AFTER EVENING MEAL DENIES DISCOMFORTS OR NEEDS OF
--- NOTE | 2019-05-12 19:36 | NUR ---
REPORT RECEIVED FROM DAY SHIFT RN. PT LYING IN BED, ALERT AND ORIENTED. DENIES NEEDS AT THIS TIME. CALL LIGHT IN REACH.
--- NOTE | 2019-05-12 20:30 | NUR ---
ASSESSMENT COMPLETE. PM MEDS GIVEN WITHOUT DIFFICULTY. RIGHT HIP INCISION COVERED WITH GAUZE, CDI. SCD'S IN PLACE. PAIN CONTROLLED AT THIS TIME. FRESH WATER GIVEN. PT DENIES FURTHER NEEDS AT THIS TIME. CALL LIGHT IN REACH.
--- NOTE | 2019-05-12 21:01 | NUR ---
ROUNDED CHARGE. PATIENT IS RESTING IN BED. PATIENT DENIES ANY COMMENTS, QUESTIONS OR CONCERNS. NO NEEDS NOTED. CALL LIGHT IN REACH.
--- NOTE | 2019-05-12 21:26 | NUR ---
patient is resting, call light in reach and fresh water given.
--- NOTE | 2019-05-12 22:00 | NUR ---
CALL LIGHT ANSWERED. PT UP TO BR WITH FWW AND SBA. BACK TO BED, LAKE WELL. PRN GIVEN FOR RIGHT LEG PAIN.
--- NOTE | 2019-05-13 04:19 | NUR ---
CALL LIGHT ANSWERED. PT UP TO BR WITH SBA AND FWW. DEVIN CARE DONE. BACK TO BED, LAKE WELL. MEDICATED WITH PRN FOR RIGHT LEG PAIN.
--- NOTE | 2019-05-13 06:17 | NUR ---
PT SLEPT WELL. ALERT AND ORIENTED, USES CALL LIGHT APPROPRIATELY. SBA WITH FWW. TYLENOL FOR PAIN. RIGHT HIP INCISION WELL APPROXIMATED WITH BRADLEY. ALLEVYN TO BUTTOCKS/COCCYX.
--- NOTE | 2019-05-13 07:20 | NUR ---
Bedside report received, orders acknowledged. Patient laying in bed, awake. Reports "I slept good last night." No needs at this time, call light within reach.
--- NOTE | 2019-05-13 08:00 | NUR ---
Patient up to chair with FWW and SBA. Breakfast delivered. Warm blankets provided, new gown provided. Linens refreshed. Vital signs taken. AM medications given. Patient reports pain of 6/10, lidocaine patch placed on left leg above knee. Denies further needs at this time, call light within reach.
--- NOTE | 2019-05-13 09:33 | NUR ---
PATIENT IN CHAIR TALKING WITH CASE MANAGMENT. CALL LIGHT IN REACH. NO FURTHER NEEDS AT THIS TIME.
--- NOTE | 2019-05-13 09:57 | NUR ---
Patient's daughter on telephone receiving update on patient from this RN
--- NOTE | 2019-05-13 10:12 | NUR ---
Patient reports pain of 5/10, prn pain medication given (see MAR)
--- NOTE | 2019-05-13 11:47 | NUR ---
Patient sleeping in chair, respirations even and unlabored. Call light within reach.
--- NOTE | 2019-05-13 11:50 | NUR ---
PT IS SITTING IN CHAIR-DOZING ON AND OFF. PT STATED THAT SHE DIDN'T SLEEP WELL LAST NIGHT AND WAS IN SOME PAIN TODAY. GAVE ENOCURAGEMENT AND CHALLENGED HER TO WORK HARD WITH HER THERPIES. WILL FOLLOW NEEDED
--- NOTE | 2019-05-13 12:00 | NUR ---
Patient sitting up in chair watching tv. Lunch delivered. Denies needs at this time, call light within reach.
--- NOTE | 2019-05-13 12:12 | NUR ---
Spoke with Erinn. She states she is having a down day today. Painful from rehab yesterday. Also grieving as her daughter in law April 06. This has been a very difficulty time for her, son, and granddaughters. Allowed pt to discuss her grief and encouraged to speak about daughter in law.
--- NOTE | 2019-05-13 12:36 | NUR ---
PATIENT UP TO BATHROOM AND BACK TO BED, 1PA FWW. FRESH WATER GIVEN. CALL LIGHT IN REACH. NO FURTHER NEEDS AT THIS TIME.
--- NOTE | 2019-05-13 13:00 | NUR ---
Patient sleeping in chair, respirations even and unlabored. Call light within reach.
--- NOTE | 2019-05-13 15:30 | NUR ---
Patient laying in bed watching tv. Denies pain. Patient adjusted in bed for comfort. Denies further needs, call light within reach.
--- NOTE | 2019-05-13 17:19 | NUR ---
Patient sitting up in bed eating dinner. PM medications given. Patient denies pain. No further needs at this time, call light within reach.
--- NOTE | 2019-05-13 19:25 | NUR ---
BEDSIDE REPORT RECEIVED FROM DAVID CHO. pt RESTING IN BED, DROWSY. RATES PAIN 3-4/10 STATES "IT COMES AND GOES, VERY MANAGEABLE RIGHT NOW". SCDS ON. NO REQUESTS AT THIS TIME. CALL LIGHT IN REACH.
--- NOTE | 2019-05-13 21:00 | NUR ---
pt SLEEPING, AWAKENS TO VOICE. ASSESSMENT COMPLETE. VSS. SCHEDULED MEDICATION ADMINISTERED. pt DENIES PAIN. UP SBA WITH 4WW WITH LAND DEGRADATION ANALYST CHATO ASSIST. LAND DEGRADATION ANALYST REMAINS IN ROOM.
--- NOTE | 2019-05-13 21:02 | NUR ---
ROUNDED CHARGE. PATIENT IS RESTING IN BED. PATIENT DENIES ANY COMMENTS, QUESTIONS OR CONCERNS. KIRIT HERNANDEZ IS IN ROOM. VERONICA GLORIA IN REACH.
--- NOTE | 2019-05-13 22:13 | NUR ---
PATIENT RATES PAIN AT A 8/10. PATIENT GIVEN PRN PAIN MEDICATION PER ORDER. PATIENT OFFERED ICE FOR HER HIP. PATIENT DENIES THE NEED AT THIS TIME. PATIENT DENIES ANY FURTHER NEEDS AT THIS TIME. PATIENT IS RESTING IN BED WITH CALL LIGHT IN REACH.
--- NOTE | 2019-05-14 00:53 | NUR ---
CHECKED ON pt. RESTING IN BED WITH EYES CLOSED. RR 18. SCDS ON. LIGHTS OFF IN ROOM.
--- NOTE | 2019-05-14 02:39 | NUR ---
pt RATES PAIN 5/10 IN RIGHT LOWER LEG. PRN MEDICATION ADMINISTERED. REPOSITIONED WITH TWO RN ASSIST. INCISION INTACT RIGHT HIP X 2 WITH BRADLEY. SMALL SPOT SS DRAINAGE RIGHT LOWER DRESSING, DRIED. ICE WATER WATER PROVIDED. CALL LIGHT IN REACH.
--- NOTE | 2019-05-14 04:35 | NUR ---
PT UP TO BR WITH 1PA AND FWW, GAIT STEADY. BACK TO BED, LAKE WELL. SCD'S/HP IN PLACE
--- NOTE | 2019-05-14 06:07 | NUR ---
pt RESTED WELL THROUGHOUT SHIFT. PRN TYLENOL AND PRN OXY X1 FOR PAIN CONTROL. 1PA WITH FOUR WHEEL WALKER. AMBULATING TO RESTROOM. USING CALL LIGHT APPROPRIATELY. INCISIONS INTACT, BRADLEY IN PLACE. NO DRAINAGE NOTED. HEEL PROTECTORS, SCDS ON.
--- NOTE | 2019-05-14 07:44 | NUR ---
pt alert and interactive during shift report denies pain while resting in bed. reports pain has decreased over the past few days. pt up to the chair sba with fww agrees she is ready for breakfast. call light in lap
--- NOTE | 2019-05-14 08:15 | NUR ---
PATIENT RESTING IN BED. RN IN ROOM. PATIENT TRANSFERRED TO CHAIR. PATIENT USES WALKER. ONE PERSON ASSISTING. LINENS CHANGED. WARM BLANKET PROVIDED. CALL LIGHT WITHIN REACH. NO OTHER NEEDS AT THIS TIME
--- NOTE | 2019-05-14 09:30 | NUR ---
PATIENT SITTING UP IN CHAIR. PHYSICAL THERAPIST IN ROOM. VITAL SIGNS AND I&O DONE. CALL LIGHT WITHIN REACH. NO OTHER NEEDS AT THIS TIME
--- NOTE | 2019-05-14 10:02 | NUR ---
PT UP TO WORK WITH P/T PAIN LEVEL INCREASED 8/10 MEDICATED PER REQUEST WITH OXY
--- NOTE | 2019-05-14 10:33 | NUR ---
PT UP IN THE CHAIR AGREES PAIN MED WAS EFFECTIVE FOR HER.
--- NOTE | 2019-05-14 12:54 | NUR ---
PT EATS MOST OF LUNCH THEN HAS EMESIS. STATES SHE MAY HAVE EATEN TO QUICKLY, "IT'S JUST NOT AGREEING WITH ME" WET CLOTH PROVIDED, ASSISTED TO CHANGE TOP. PT STATES NAUSEA HAS MOSTLY PAST.
--- NOTE | 2019-05-14 12:58 | NUR ---
PATIENT SITTING UP IN CHAIR. I&O DONE. HOT TE GIVEN. CALL LIGHT WITHIN REACH. NO OTHER NEEDS AT THIS TIME
--- NOTE | 2019-05-14 14:29 | NUR ---
PT RESTING IN BED WITH GILMER ON. SHE SAID SHE IS HAVING A ROUGH DAY, JUST NOT FEELING GOOD. PT REQUESTED PRAYER, WILL FOLLOW NEEDED
--- NOTE | 2019-05-14 14:31 | NUR ---
PATIENT RESTING IN BED. BEDBATH DONE. ONE PERSON ASSISTING. PATIENT USING A CLEAN GOWN. CALL LIGHT WITHIN REACH. NO OTHER NEEDS AT THIS TIME
--- NOTE | 2019-05-14 16:04 | NUR ---
Pt feeling better today. Working with PT. Denies c/o.
--- NOTE | 2019-05-14 17:53 | NUR ---
pt up in the chair for evening meal tolerates most of her dinner no further nausea no emesis. pt agrees she is comfortable, denies further needs at this time
--- NOTE | 2019-05-14 18:09 | NUR ---
PATIENT SITTING UP IN CHAIR. I&O DONE. CALL LIGHT WITHIN REACH. NO OTHER NEEDS AT THIS TIME
--- NOTE | 2019-05-14 20:16 | NUR ---
BEDSIDE REPORT RECEIVED FROM DAVID FALK. pt APPEARS TO BE SLEEPING. BED ALARM ON. CALL LIGHT IN REACH.
--- NOTE | 2019-05-14 20:30 | NUR ---
ROUNDED CHARGE. PATIENTS VITALS TAKEN AND RECORDED. PATIENT DENIES ANY QUESTIONS, COMMENTS, OR CONCERNS. KIRIT HERNANDEZ IN ROOM. CALL LIGHT IN REACH.
--- NOTE | 2019-05-14 20:49 | NUR ---
pt ASSESSMENT COMPLETE. VSS. RATES PAIN 3/10 IN RIGHT ANKLE. CSM INTACT. BRADLEY INTACT RIGHT HIP, GAUZE CDI. SBA WITH FOUR WHEEL WALKER TO RESTROOM AND BACK TO BED. ICU TECH CHATO IN ROOM APPLYING SCDS, HEEL PROTECTORS. WARM BLANKET PROVIDED.
--- NOTE | 2019-05-14 22:23 | NUR ---
CALL LIGHT ANSWERED. pt C/O 10/16 PAIN IN RIGHT ANKLE. PRN PAIN MEDICATION ADMINISTERED. NO ADDITIONAL REQUESTS. SCDS, HEEL PROTECTORS ON, CALL LIGHT IN REACH.
--- NOTE | 2019-05-14 23:55 | NUR ---
pt C/O CRAMPING, NAUSEA IN STOMACH. SBA TO RESTROOM, LARGE BM. PRN NAUSEA MEDICATION ADMINISTERED. pt IN BED WITH SCDS, HEEL PROTECTORS ON.
--- NOTE | 2019-05-15 01:43 | NUR ---
CHECKED ON pt. RESTING IN BED W EYES CLOSED. BREATHING EQUAL AND UNLABORED.
--- NOTE | 2019-05-15 04:42 | NUR ---
patient slept well did much better getting in and out of bed, patient did her own cares
--- NOTE | 2019-05-15 05:23 | NUR ---
pt AMBULATING WELL SBA WITH FOUR WHEEL WALKER. REDDNESS TO BUTTOCKS, BARRIER CREAM APPLIED. INCISIONS INTACT WITH BRADLEY. PRN TYLENOL ADMINISTERED AVAILABLE, PRN OXYCODONE X 1. SCDS, HEEL PROTECTORS ON. NO IV. LARGE BM. PRN NAUSEA MEDICATION X 1. NO EMESIS.
--- NOTE | 2019-05-15 05:42 | NUR ---
pt AWAKENS TO VOICE. PRN TYLENOL ADMINISTERED, DENIES PAIN AT REST. PAINFUL WITH SBA, FOUR WHEEL WALKER TO RESTROOM FOR VOID. VERBALIZES UNDERSTANDING TO USE CALL LIGHT WHEN FINISHED.
--- NOTE | 2019-05-15 07:30 | NUR ---
PATIENT IN BED. WARM WASHCLOTH OFFERED. PATIENT GOT UP TO CHAIR FOR BREAKFAST. SHOWER OFFERED, PATIENT SAYS SHE WILL THINK ABOUT IT. CALL LIGHT WITHIN REACH. NO FURTHER NEEDS AT THIS TIME.
--- NOTE | 2019-05-15 07:33 | NUR ---
REPORT RECEIVED. PT LYING IN BED WITH EYES CLOSED. CALL LIGHT IN REACH. RESPIRATIOSN EQUAL AND NON-LABORED.
--- NOTE | 2019-05-15 09:10 | NUR ---
IDT completed. Pt states she is weak and runs out of energy. Therpist are in agreement and state need to work early in the day as soon as pt works with other therapy she is out of energy for the day. Dietary spoke with pt about eating more instead of eating 1/2 meal. Encouraged to drink ensure between meals. Pt needs to continue TC as she remains work and cannot safely dc to home.
--- NOTE | 2019-05-15 09:45 | NUR ---
ASSESSMENT COMPLETED. LUNGS CLEAR. DRESSING TO RIGHT HIP GAUZE IS C/D/I. BRUISE TL LEFT LEG IS DIFFUSE THROUGHOUT WHOLE LEG. LIDOCAINE PATCH PLACED TO LEFT INNER THIGH. PT UP IN CHAIR. ATE 100% OF BREAKFAST. DENEIS PAIN. CALL [facility] IN REACH.
--- NOTE | 2019-05-15 11:29 | NUR ---
PT OUT WORKING WITH [employer]; THERAPY.
--- NOTE | 2019-05-15 15:50 | NUR ---
PT REPORTING PAIN. PRN PAIN MEDICAITON ADMINSITERED.
--- NOTE | 2019-05-15 17:08 | NUR ---
PT SITTING UP IN CHAIR FOR DINNER. DENIES PAIN OR NEEDS. CALL LIGHT IN REACH.
--- NOTE | 2019-05-15 19:10 | NUR ---
SHIFT REPORT RECEIVED FROM DAYSPRFT DAVID ERAZO AT BEDSIDE. PT AWAKE AND RESTING IN CHAIR, DENIES NEEDS. BOARD UPDATED. CALL LIGHT IN REACH.
--- NOTE | 2019-05-15 20:43 | NUR ---
IN ROOM TO ADMINISTER TYLENOL VS TAKEN AND I&O'S ENTERED. PT DENIES FURTHER NEEDS CALL LIGHT IS CLOSE.
--- NOTE | 2019-05-15 21:40 | NUR ---
ASSESSMENT COMPLETE, SCHEDULE PATCH REMOVED (SEE EMAR). PT REPORTS TOLERABLE 3/10 PAIN, DISCUSSED WITH PT WHEN NEXT AVAILABLE OXYCODONE IS AVAILABLE, PT VERBALIZED UNDERSTANDING. DIFFUSE BRUISING TO RIGHT HIP, BRADLEY INTACT. GAUZE AND TAPE ALSO IN PLACE, NO SHADOWING NOTED AT THIS TIME. NO ADDITIONAL NEEDS, CALL LIGHT IN REACH. SCD'S ON.
--- NOTE | 2019-05-15 23:16 | NUR ---
PT RESTING IN BED, EYES CLOSED. RESPIRATIONS EVEN AND UNLABORED. NO DISTRESS NOTED, CALL LIGHT IN REACH.
--- NOTE | 2019-05-16 00:54 | NUR ---
pt up sba with wlker to void, 475 output noted. pt back in bed and reporting 6-7/10 pain, prn oxcodone administered. no additional needs, call light in reach.
--- NOTE | 2019-05-16 02:45 | NUR ---
PT RESTING IN BED WITH EYES CLOSED. NO DISTRESS NOTED, CALL LIGHT IN REACH.
--- NOTE | 2019-05-16 04:56 | NUR ---
PRN TYLENOL GIVEN FOR 6/10 RIGHT HIP PAIN. PT DENIES ADDITIONAL NEEDS, CALL LIGHT IN REACH.
--- NOTE | 2019-05-16 05:10 | NUR ---
PT HAD UNEVENTFUL NIGHT, SLEPT ON AND OFF THIS SHIFT. VSS, PT TRANSITIONAL CARE ADMIT. A/O, USES CALL LIGHT APPROPERAITELY. PRN TYLENOL X2 AND OXYCODONE X1 GIVEN FOR PAIN IN RIGHT HIP. DRESSINGS C/D/I, NO SHADOWING OR DRAINAGE NOTED. VOIDING QS, NO BM THIS SHIFT. 60G CARB DIET, TOLERATING WELL. NO REPORTS OF NAUSEA. SBA WITH WALKER.
--- NOTE | 2019-05-16 07:21 | NUR ---
REPORT RECIEVED. PT SITTING UP IN BED, ALERT AND ORIENTED. CALL LIGHT IN REACH. DENEIES NEEDS.
--- NOTE | 2019-05-16 07:55 | NUR ---
SBA TO BATHROOM. VOIDED 200ML. THEN UP TO CHAIR FOR BREAKFAST. TOLERATED WELL. CALL LIGHT AND PERSONAL ITEMS WITHIN REACH. WATER REFRESHED.
--- NOTE | 2019-05-16 07:56 | NUR ---
patient up in chair. warm washcloth offered. breakfast in room. call light in reach. linens changed. no further needs at this time.
--- NOTE | 2019-05-16 10:00 | NUR ---
Pt sleeping in chair, not awakened. Discussed in 0830 huddle. No plan for dc at this point due to weakness. Per OT/PT will assess again midweek of 05/19/19.
--- NOTE | 2019-05-16 13:57 | NUR ---
PT REPORTING R HIP PAIN. TYLENOL ADMINISTERED.
--- NOTE | 2019-05-16 18:33 | NUR ---
SBA TO BED. NO ASSISTANCE NEEDED. CALL LIGHT AND PERSONAL ITEMS WITHIN REACH.
--- NOTE | 2019-05-16 18:40 | NUR ---
PT HAD GOOD DAY. PAIN WELL CONTROLLED WITH TYLENOL AND OXY. PT/OT. SBA SITH FWW. MINIMAL ASSIST. LIDODERM TO RIGHT THIGH. EATING WELL. URINE OUTPUT IS QS.
--- NOTE | 2019-05-16 19:00 | NUR ---
SHIFT REPORT RECEIVED FROM DAYSHIFT DAVID ERAZO. PT AWAKE AND RESTING IN BED, DENIES NEEDS. BOARD UPDATED. CALL LIGHT IN REACH.
--- NOTE | 2019-05-16 20:31 | NUR ---
ASSESSMENT COMPLETE, VSS. SCHEDULED MEDS GIVEN (SEE EMAR). PT REPORTS TOLERABLE 3/10 PAIN IN RIGHT HIP. INCISION SITES X2 ASSISTANT CLINICAL NURSE MANAGER, BRADLEY NOTED. SITE DRY, NO DRAINAGE NOTE, SITES WELL APPROXIMATED. CMS INTACT, PT DENIES NUMBNESS AND TINGLING. 1PA WITH WALKER. USES CALL LIGHT APPROPERAITELY. WARM BLANKET PROVIDED, NO FURTHER NEED. CALL LIGHT IN REACH.
--- NOTE | 2019-05-17 00:10 | NUR ---
PT RESTING IN BED WITH EYES CLOSED. RESPIRATIONS EVEN AND UNLABORED. NO DISTRESS NOTED. CALL LIGHT IN REACH.
--- NOTE | 2019-05-17 02:03 | NUR ---
LANEY JULY ASSISTING PT TO THE BATHROOM. NO NEEDS VERBALIZED.
--- NOTE | 2019-05-17 03:30 | NUR ---
PT RESTING IN BED WITH EYES CLOSED. NO DISTRESS NOTED, CALL LIGHT IN REACH.
--- NOTE | 2019-05-17 04:23 | NUR ---
prn tylenol given for 5/10 pain in right hip. no further needs, call light in reach.
--- NOTE | 2019-05-17 04:25 | NUR ---
PT HAD A GOOD NIGHT, SLEPT FOR MOST OF SHIFT. IN TRANSITIONAL CARE PROGRAM, VSS. A/O, USES CALL LIGHT APPROPERIATELY. SBA WITH WALKER. PRN TYLENOL GIVEN X1 FOR PAIN IN RIGHT HIP. INCISIONS X2 BINDING CUTTER, BRADLEY IN PLACE. 60G CARB DIET, TOLERATING WELL. NO NAUSEA REPORTED.
--- NOTE | 2019-05-17 05:10 | NUR ---
I&O'S COLLECTED, FRESH WATER AT BEDSIDE. EYES CLOSED. RESPIRATIONS EVEN AND UNLABORED. CALL LIGHT IN REACH.
--- NOTE | 2019-05-17 07:00 | NUR ---
Report received, orders acknowledged.
--- NOTE | 2019-05-17 08:05 | NUR ---
Patient up to chair with FWW and 1PA. Breakfast delivered. AM medications given, assessment complete. Patient reports pain of 5/10, lidocaine patch administered on right knee. Warm blankets provided, water refreshed. No further needs, call light within reach.
--- NOTE | 2019-05-17 08:07 | NUR ---
PATIENT AMBULATED TO BEDSIDE RECLINER. PATIENT SITTING UP WAITING FOR BREAKFAST, AM CARE PERFORMED. LINENS CHANGED, CALL LIGHT IN REACH. RN IN ROOM. NO OTHER NEEDS AT THIS TIME.
--- NOTE | 2019-05-17 09:15 | NUR ---
Patient reports pain of 3/10, prn pain medication given (see MAR).
--- NOTE | 2019-05-17 10:30 | NUR ---
Patient sleeping in chair, respirations even and unlabored. Call light within reach.
--- NOTE | 2019-05-17 11:39 | NUR ---
Patient reports pain of 5/10, prn pain medication given (see MAR). Patient sitting up in chair watching tv. Denies further needs, call light within reach.
--- NOTE | 2019-05-17 12:30 | NUR ---
PT working with patient, ambulating halls with gait belt and FWW
--- NOTE | 2019-05-17 13:04 | NUR ---
Patient laying in bed watching tv. Water refreshed, denies further needs. Call light within reach.
--- NOTE | 2019-05-17 13:09 | NUR ---
PATIENT RESTING IN BED. I&O DONE. CALL LIGHT WITHIN REACH. NO OTHER NEEDS AT THIS TIME
--- NOTE | 2019-05-17 14:02 | NUR ---
Patient laying in bed talking on the phone. Denies needs at this time, call light within reach.
--- NOTE | 2019-05-17 15:02 | NUR ---
PATIENT RESTING IN BED. BEDBATH DONE. PATIENT USING A CLEAN [place]JAMAS. CALL LIGHT WITHIN REACH. NO OTHER NEEDS AT THIS TIME
--- NOTE | 2019-05-17 16:27 | NUR ---
Patient up to chair with FWW and SBA. PM medications given. Water refreshed. Warm blanket provided, denies further needs at this time. Call light within reach.
--- NOTE | 2019-05-17 16:28 | NUR ---
CALL LIGHT ANSWERED. PATIENT RESTING IN BED. PATIENT GOES TO USE THE BATHROOM. PATIENT USES WALKER. ONE PERSON ASSISTING. PATIENT BACKS TO CHAIR. CALL LIGHT WITHIN REACH. NO OTHER NEEDS AT THIS TIME
--- NOTE | 2019-05-17 17:32 | NUR ---
PATIENT SITTING UP IN CHAIR. I&O DONE. CALL LIGHT WITHIN REACH. NO OTHER NEEDS AT THIS TIME
--- NOTE | 2019-05-17 18:00 | NUR ---
Patient ambulated to bed with FWW and SBA. Patient provided with warm blankets, denies further needs. Call light within reach.
--- NOTE | 2019-05-17 18:41 | NUR ---
Patient sleeping in bed, respirations even and unlabored. Call light within reach.
--- NOTE | 2019-05-17 20:19 | NUR ---
HELPED PT TO THE BATHROOM AND BACK WITH HER FWW. SHE ASKED FOR TYLENOL. I INFORMED HER RN VICTOR MANUEL. BEDSIDE TABLE AND CALL LIGHT IN REACH. TWO WARM BLANKETS GIVEN.
--- NOTE | 2019-05-17 22:11 | NUR ---
ASSESSMENT COMPLETE, SCHEDULED MEDS ALSREADY GIVEN BY FAITH RN (SEE EMAR). PAIN PATCH TO RLE REMOVED AT THIS TIME. INCISIONS X2 MILL MANAGER, WELL APPROXIMATED WITH BRADLEY INTACT. PT A/O, VSS. REPORTS MINIMAL 2-3/10 PAIN. RESTING IN BED, DENIES FURTHER NEEDS, CALL LIGHT IN REACH.
--- NOTE | 2019-05-17 22:41 | NUR ---
HELPED PT TO THE BATHROOM AND BACK TO BED WITH HER FWW. BEDSIDE TABLE AND CALL LIGHT IN REACH.
--- NOTE | 2019-05-18 01:00 | NUR ---
PT RESTING IN BED WITH EYES CLOSED. RESPIRATIONS EVEN AND UNLABORED. NO DISTRESS NOTED. CALL LIGHT IN REACH.
--- NOTE | 2019-05-18 02:44 | NUR ---
HELPED PT TO THE BATHROOM AND BACK TO BED WITH HER FWW. BEDSIDE TABLE AND CALL LIGHT IN REACH. HEEL PROTECTORS PUT ON.
--- NOTE | 2019-05-18 03:00 | NUR ---
PT RETING IN BED WITH EYES CLOSED. RR WNL, NO DISTRESS NOTED. CALL LIGHT IN REACH.
--- NOTE | 2019-05-18 07:27 | NUR ---
BEDSIDE REPORT RECEIVED FROM VICTOR MANUEL HERNANDEZ. ALL QUESTIONS ANSWERED. WHITE BOARD UPDATED. PATIENT AWAKE SITTING UP IN BED. REPORTS 6/10 RIGHT LEG PAIN. WILL ADMINISTER TYLENOL AND BRING FRESH ICE WATER TO ROOM. NO OTHER NEEDS AT THIS TIME.
--- NOTE | 2019-05-18 07:56 | NUR ---
PATIENT RESTING IN BED. RN IN ROOM. PATIENT TRANSFERRED TO CHAIR. PATIENT USES WALKER. ONE PERSON ASSISTING. LINENS CHANGED. WARM BLANKET PROVIDED. SETS UP TABLE FOR BREAKFAST. CALL LIGHT WITHIN REACH. NO OTHER NEEDS AT THIS TIME
--- NOTE | 2019-05-18 09:08 | NUR ---
PATIENT SITTING UP IN CHAIR. VITAL SIGNS AND I&O DONE. LOW DYASTOLIC BLOOD PRESSURE. RN NOTIFIED. CALL LIGHT WITHIN REACH. NO OTHER NEEDS AT THIS TIME
--- NOTE | 2019-05-18 10:29 | NUR ---
CALL LIGHT ANSWERED. PATIENT SITTING UP IN CHAIR. PATIENT GOES TO USE THE BATHROOM. PATIENT USES WALKER. ONE PERSON ASSISTING. PATIENT BACKS TO CHAIR. CALL LIGHT WITHIN REACH. NO OTHER NEEDS AT THIS TIME
--- NOTE | 2019-05-18 11:04 | NUR ---
PT CALLED TO ASK FOR A PAIN PILL. RATES PAIN 8\10 AND STATES THE PAIN IS MAKING HER NAUSEOUS. REMINDED HER TO CALL BEFORE THE PAIN GETS OUT OF CONTROL, PERHAPS A 5 OR 6 AND WE WOULD KEEP IT UNDER CONTROL BETTER.
--- NOTE | 2019-05-18 13:04 | NUR ---
PATIENT SITTING UP IN CHAIR. PHYSICAL THERAPIST IN ROOM. I&O DONE. CALL LIGHT WITHIN REACH. ICE WATER GIVEN. NO OTHER NEEDS AT THIS TIME
--- NOTE | 2019-05-18 13:43 | NUR ---
WORKED WITH PHYSICAL THERAPY. THERAPIST REPORTS PATIENT NEEDS STRONG ENCOURAGEMENT TO BE MOTIVATED TO PERFORM MORE THERAPY. AMBULATED IN ROOM, BUT NOT IN HALLWAY.
--- NOTE | 2019-05-18 17:29 | NUR ---
PATIENT SITTING UP IN CHAIR. I&O DONE. CALL LIGHT WITHIN REACH. NO OTHER NEEDS AT THIS TIME
--- NOTE | 2019-05-18 18:13 | NUR ---
CALL LIGHT ANSWERED. PATIENT SITTING UP IN CHAIR. PATIENT ASKS FOR PAIN MEDICINE. RN NOTIFIED. PATIENT GOES BACK TO BED. PATIENT USES WALKER. ONE PERSON ASSISTING. CALL LIGHT WITHIN REACH. NO OTHER NEEDS AT THIS TIME
--- NOTE | 2019-05-18 18:17 | NUR ---
WORKED WITH PHYSICAL THERAPY THIS AFTERNOON, BUT DIDN'T AMBULATE INTO HALLWAY. NEEDS ENCOURAGEMENT TO WORK HARDER. OXY AND TYLENOL FOR PAIN. LIDOCAINE PATCH ON RIGHT KNEE. TRANSITIONAL CARE. HOME SUNDAY WITH SON.
--- NOTE | 2019-05-18 19:10 | NUR ---
SHIFT REPORT RECEIVED FROM DAYSHIFT DAVID SOMMERS AT BEDSIDE. PT RESTING IN BED, RESPIRATIONSEVEN AND UNLABORED. NO DISTRESS NOTED, CALL LIGHT IN REACH.
--- NOTE | 2019-05-18 21:27 | NUR ---
ASSESSMENT COMPLETE, SCHEDULED MEDS AND VS ALREADY COMPLETED BY METER SHOP SUPERVISOR. PT REPORTS TOLERABLE 5/10 PAIN IN RIGHT HIP AFTER BEING RECENTLY MEDICATED WITH PRN PAIN MEDICATION (SEE EMAR). PT A/O, RESPIRATIONS EVEN AND UNLABORED. NO DISTRESS NOTED. INCISION SITES X2 LONG, BRADLEY IN PLACE. WELL APPROXIMATED. NO SIGNS OF INFECTION. LANEY HADLEY IN ROOM TO ASSIST PT TO BATHROOM.
--- NOTE | 2019-05-18 23:33 | NUR ---
PT RESTING IN BED WITH EYES CLOSED. NO DISTRESS NOTED, RR WNL. CALL LIGHT IN REACH.
--- NOTE | 2019-05-19 02:58 | NUR ---
PT RESTING IN BED WITH EYES CLOSED, RESPIRATIONS EVEN AND UNLABORED. CALL LIGHT IN REACH.
--- NOTE | 2019-05-19 05:09 | NUR ---
PT HAD UNEVENTFUL NIGHT, SLEPT FOR MOST OF SHIFT. VSS AND A/O. PAIN CONTROLLED WITH PRN PAIN MEDS. SBA WITH FWW, USES CALL LIGHT APPROPERIATELY. 60CARB DIET, TOLERATING WELL. NO NAUSEA MEDS NEEDED. INCISION SITES X2 LONG, BRADLEY INTACT. MD ORDER TO REMOVE BRADLEY ON 05/20/2019.
--- NOTE | 2019-05-19 07:20 | NUR ---
BEDSIDE REPORT.. PT RESTING IN BED ALERT AND ORIENTED. NO DISTRESS NOTED. NO REQUESTS.
--- NOTE | 2019-05-19 07:33 | NUR ---
PATIENT RESTING IN BED. PATIENT GOES TO USE THE BATHROOM. PATIENT USES WALKER. ONE PERSON ASSISTING. PATIENT BACKS TO CHAIR. LINENS CHANGED. CALL LIGHT WITHIN REACH. NO OTHER NEEDS AT THIS TIME
--- NOTE | 2019-05-19 08:52 | NUR ---
PATIENT SITTING UP IN CHAIR. I&O DONE. VITAL SIGNS DONE BY RN. CALL LIGHT WITHIN REACH. NO OTHER NEEDS AT THIS TIME
--- NOTE | 2019-05-19 10:29 | NUR ---
pt completed physical therapy and occupational therapy and reports pain is high 4-5/10 tylenol not available again until 1200, will given 2.5 oxycodone po prn at this time.
--- NOTE | 2019-05-19 10:45 | NUR ---
PT SIGNED INTENT TO DC LETTER. TRANSITIONAL CARE SURVEY GIVEN TO PT. PT IS LOOKING FORWARD TO GOING TO HER SONS HOME AND BEING OUT OF THE HOSPITAL. STATES THAT SHE WANTS HER OP PT TO BE THROUGH [facility], WILL ARRANGE THIS FOR HER.
--- NOTE | 2019-05-19 11:02 | NUR ---
PATIENT IN RECLINER WATCHING TV. STATES SHE IS EATING MORE OF HER MEALS AND SHE IS DRINKING AN ENSURE WITH LUNCH. SHE STATES SHE THINKS EATING MORE AND THE ENSURE IS HELPING HER GET THROUGH HER THERAPY SESSIONS DUE TO MORE ENERGY. HER SON DID BUY ENSURE FOR HER FOR HOME. SHE PREFERS TO ONLY DRINK 1 ENSURE A DAY. MAY GO HOME TOMORROW. WILL CONTINUE TO MONITOR.
--- NOTE | 2019-05-19 11:35 | NUR ---
PT SITTING IN RECLINER EYES CLOSED, RESP EVEN 16 BPM, NO DISTRESS. APPEARS TO BE SLEEPING.
--- NOTE | 2019-05-19 13:05 | NUR ---
PATIENT SITTING UP IN CHAIR. FAMILY IN ROOM. I&O DONE. CALL LIGHT WITHIN REACH. NO OTHER NEEDS AT THIS TIME
--- NOTE | 2019-05-19 13:13 | NUR ---
PT AMBULATING IN HALLS WITH Albert TAYLOR. SHE WAS RESTING FOR THE MOMENT IN , AND SAID ARUN. JUST RESTING FOR A MOMENT SHE STATED, AND THEN STARTED OFF AGAIN. PT SEEMS TO BE TRYING TO BE POSITIVE, GAVE BLESSING AND WILL FOLLOW NEEDED
--- NOTE | 2019-05-19 15:12 | NUR ---
PATIENT WORKED WITH THERAPIES AND NOW HAS A SLIGHT INCREASE IN PAIN. TYLENOL 500MG PO PRN GIVEN AT THIS TIME.
--- NOTE | 2019-05-19 17:17 | NUR ---
pt had difficulty passing very firm stool, will give mirlax held this am per patient request.
--- NOTE | 2019-05-19 17:44 | NUR ---
PT HAS WORKED WITH PHYSICAL THERAPY TWICE AND OCCUPATIONAL THERAPY TODAY. SHE HAD LOOSE BM THIS AM PER HER REPORT HELD MIRLAX, THEN HAD VERY FIRM BM THIS AFTERNOON AND GAVE MIRLAX. SHE HAS HAD OXYCODONE PRN ONCE, AND TYLENOL TWICE, LIDODERM PATCH ON RIGHT LOWER EXTREMITY. STABLE ARE TO BE REMOVED TOMORROW PER 'S ORDER. PT PLAN TO DISCHARGE Sunday05/20/19. PT IS ONE PERSON STAND BY ASSIST TO AMBULATE.
--- NOTE | 2019-05-19 17:53 | NUR ---
PATIENT SITTING UP IN CHAIR. I&O DONE. CALL LIGHT WITHIN REACH. NO OTHER NEEDS AT THIS TIME
--- NOTE | 2019-05-19 19:30 | NUR ---
BEDSIDE REPORT RECIEVED FROM DAVID VINSON. pt AWAKE, RESTING IN BED. RATES PAIN 06/16, "IT'S OKAY". NO REQUESTS AT THIS TIME.
--- NOTE | 2019-05-19 20:02 | NUR ---
pt ASSESSMENT COMPLETE. VSS. pt RATES PAIN "ALMOST 0/10 IN RIGHT LEG". SOUP PROVIDED. INCISIONS INTACT RIGHT HIP, NO REDNESS OR DRAINAGE NOTED. BRADLEY INTACT. pt DENIES TOILETING NEEDS AT THIS TIME. CALL LIGHT IN REACH.
--- NOTE | 2019-05-19 21:00 | NUR ---
ROUNDED CHARGE. PATIENT IS RESTING IN BED WITH EYES CLSOED, RR 17. CALL LIGHT IN REACH.
--- NOTE | 2019-05-19 23:36 | NUR ---
pt RESTING IN BED, APPEARS TO BE SLEEPING. EYES CLOSED. BREATHING UNLABORED. LIGHTS OFF IN ROOM.
--- NOTE | 2019-05-20 00:35 | NUR ---
CALL LIGHT ANSWERED, SBA WITH FWW TO RESTROOM FOR VOID AND LARGE SOFT BM. INCONTINENT OF BM IN ATTENDS. ATTENDS CHANGED. BACK IN BED. pt RATES PAIN 6/10, PRN PAIN MEDICATION ADMINISTERED. CRACKERS PROVIDED. CALL LIGHT IN REACH.
--- NOTE | 2019-05-20 03:16 | NUR ---
CALL LIGHT ANSWERED. WARM BLANKET PROVIDED.
--- NOTE | 2019-05-20 04:08 | NUR ---
CHECKED ON pt. RESTING IN BED WITH EYES CLOSED. BREATHING EQUAL AND UNLABORED. LIGHTS OFF IN ROOM.
--- NOTE | 2019-05-20 04:53 | NUR ---
CALL LIGHT ANSWERED. SBA W FOUR WHEEL WALKER TO RESTROOM FOR VOID AND BACK TO BED. pt RATES PAIN 6-7/10 IN RIGHT HIP. DENIES ICE PACK. CALL LIGHT IN REACH.
--- NOTE | 2019-05-20 05:23 | NUR ---
pt RESTED WELL. UP TO RESTROOM SBA WITH FOUR WHEEL WALKER, QS OUTPUT, LARGE SOFT BM THIS SHIFT. PRN TYLENOL AND OXYCODONE FOR PAIN CONTROL. USING CALL LIGHT APPROPRIATELY. PLAN TO D/C HOME WITH SON TODAY.
--- NOTE | 2019-05-20 06:30 | NUR ---
CALL LIGHT ANSWERED. SBA WITH FOUR WHEEL WALKER TO RESTROOM FOR VOID AND BACK TO BED. BRADLEY REMOVED. INCISIONS CDI. CALL LIGHT IN REACH. LIGHTS OFF IN ROOM. HEEL PROTECTORS ON.
--- NOTE | 2019-05-20 07:15 | NUR ---
Bedside report received, orders acknowledged. Patient sitting up in bed watching tv. Denies pain or further needs at this time, call light within reach.
--- NOTE | 2019-05-20 10:05 | NUR ---
Patient sitting up in chair watching tv. Denies needs at this time, call light within reach.
--- NOTE | 2019-05-20 10:27 | NUR ---
PATIENT UP TO BATHROOM AND BACK TO CHAIR, SBA FWW. WARM WASHCLOTH GIVEN. PATIENT REFUSED ORAL CARE. CALL LIGHT IN REACH. NO FURTHER NEEDS AT THIS TIME. PATIENT REFUSED SHOWER.
--- NOTE | 2019-05-20 10:49 | NUR ---
PT COMPLETED P.T. THIS AM AND NOW HAS INCREAED PAIN TO 09/16. 2.5MG OXYCODONE GIVEN AT THIS TIME.
--- NOTE | 2019-05-20 11:00 | NUR ---
Patient working with physical therapy
--- NOTE | 2019-05-20 12:10 | NUR ---
APPEARS PT IS TO DC TODAY. SON ZONIA IS HERE TO TAKE PT-SHE WILL BE LIVING WITH HIM SHE REHABS. SHE CANNOT FIND HER PLOKESH-STAFF WILL LOOK. GAVE BLESSING, WILL FOLLOW NEEDED
--- NOTE | 2019-05-20 12:24 | NUR ---
Dr. Lyle in room to discuss POC with patient
[2019-05-20] MEDS ORDERED: METFORMIN HCL500 M1 PO (12:33)
[2019-05-20] MEDS ORDERED: OXYCODONE HCL5 MG PO (12:36)
--- NOTE | 2019-05-21 09:34 | NUR ---
TALKED WITH [facility] AND THEY SAID THEY WOULD SEE PT. FAXED FACE SHEET, ORDER, H AND P, PROG NOTE, DC SUMMARY AND PT AND OT EVAL AND NOTES TO THEM AFTER TALKING WITH THEM. ALSO INFORMED THEM THAT THEY WOULD NEED TO GET A HOLD OF HER SON THIS IS WHERE SHE IS STAYING AT PRESENT.
--- NOTE | 2019-05-21 10:11 | NUR ---
RECEIVED FAX CONFIRMATION FROM FAX TO [facility] OP PT. CALLED HER SON ZONIA AT [phone] TOLD HIM A REFERRAL WAS MADE AND GAVE THEM HIS NUMBER PATIENT IS STAYING WITH HIM.
== END 2019-05-20 13:38 | disposition home health service (06) | DRG 561 ==
LOC: MS 12:18
PROVIDERS: ADMIT Internal Medicine
DX: S72.141D Displaced intertrochanteric fracture of right femur, subsequent encounter for closed fracture with routine healing (principal); Z98.890 Other specified postprocedural states; I10 Essential (primary) hypertension; E11.9 Type 2 diabetes mellitus without complications; K21.9 Gastro-esophageal reflux disease without esophagitis; E78.5 Hyperlipidemia, unspecified; Z79.899 Other long term (current) drug therapy; Z79.84 Long term (current) use of oral hypoglycemic drugs
CPT/HCPCS: 97110; 97116; 97162; 97165; 97530; 97535